=== PATIENT | male | born 1960 | race Caucasian/White ===

== ENCOUNTER 2016-06-29 08:47 | Emergency (ER) | payer BC ==
[~2016-06-29] VITALS: Ht 167.6 cm; Wt 93.9 kg
[~2016-06-29 08:47] MED LIST: ASPIR-LOW81 MG PO; Aspirin E.C. PO; FUROSEMIDE20 MG PO; K-DUR20 MEQ PO; LISINOPRIL5 MG PO; NITROSTAT0.4 MG SL; PANTOPRAZOLE SO40 MG PO; PRAVASTATIN SOD40 MG PO; PROTONIX40 MG PO; ZANTAC150 MG PO; ZOLOFT25 MG PO
[2016-06-29 09:21] LABS: BASOPHIL COUNT 0.1 K/uL (0-0.1); EOSINOPHIL (%) 3.7 % (0-5); EOSINOPHIL COUNT 0.2 K/uL (0-0.3); IMMATURE GRANULOCYTE (%) 0.9 % (0.0-0.7); IMMATURE GRANULOCYTE COUNT 0.1 K/uL; INSTRUMENT ABS NEUTROPHIL CT 3.5 K/uL; LYMPHOCYTE COUNT 1.6 K/uL (1.0-2.8); MCH 27.9 PG (29.0-34.0); MCHC 33.1 G/DL (30.0-36.0); MCV 84.3 FL (86-99); MEAN PLAT.VOLUME 8.5 uM^3 (9.0-12.4); MONOCYTE (%) 5.4 % (3-12); MONOCYTE COUNT 0.3 K/uL (0-0.8); NEUTROPHIL (%) 61.3 % (45-76); NEUTROPHIL COUNT 3.5 K/uL (1.8-6.4); PLATELET COUNT 187 K/uL (156-360); RBC DIS.WIDTH-CV 13.2 % (11.8-14.6); RBC DIS.WIDTH-SD 40.8 % (39-53); RED BLOOD COUNT 4.98 M/uL (4.00-5.50); WHITE BLOOD COUNT 5.7 K/uL (4.1-10.2)
[2016-06-29 09:29] LABS: CHLORIDE 106 mEq/L (99-109); POTASSIUM 4.5 mEq/L (3.7-5.4); SODIUM 140 mEq/L (136-147)
[2016-06-29 09:31] LABS: GLUCOSE 112 mg/dL (70-99)
[2016-06-29 09:32] LABS: ANION GAP 10 MEQ/L (2-14)
[2016-06-29 09:33] LABS: TOTAL BILIRUBIN 0.8 mg/dL (0.0-1.0)
[2016-06-29 09:34] LABS: ALKALINE PHOSPHATASE 54 IU/L (3-129)
[2016-06-29 09:35] LABS: GFR ESTIMATE (CALCULATED) > 59 mL/min/
[2016-06-29 09:36] LABS: UREA NITROGEN (BUN) 13 mg/dL (9-23)
[2016-06-29 09:58] LABS: ADD MIUA? NO; BILIRUBIN NEGATIVE; BLOOD NEGATIVE; COLOR YELLOW ((YELLOW)); GLUCOSE (STRIP) NEGATIVE; KETONES NEGATIVE; LEUKOCYTES NEGATIVE; NITRITE NEGATIVE; PROTEIN (STRIP) NEGATIVE; SPECIFIC GRAVITY 1.015 (1.000-1.030); UCUL ADDED? NO; UROBILINOGEN 0.2 MG/DL (0.2-1.0)
[2016-06-29] MEDS ORDERED: CIPRO500 MG PO (10:42)
[2016-06-29] MEDS ORDERED: BENTYL10 MG PO (10:42)
[2016-06-29] MEDS ORDERED: FLAGYL500 MG PO (10:42)
[2016-06-29 11:11] VITALS: BP 129/77
== END 2016-06-29 11:12 | disposition home or self-care (01) ==
LOC: EME 08:47
PROVIDERS: Physician Assistant
DX: K57.32 Diverticulitis of large intestine without perforation or abscess without bleeding (principal); Z87.891 Personal history of nicotine dependence; Z88.5 Allergy status to narcotic agent; J45.909 Unspecified asthma, uncomplicated; J44.9 Chronic obstructive pulmonary disease, unspecified; E78.5 Hyperlipidemia, unspecified; Z87.442 Personal history of urinary calculi; Z98.1 Arthrodesis status
CPT/HCPCS: 74020; 74177; 80053; 81003; 85025; 99281; 99284; J3010; J7120

== ENCOUNTER 2016-09-17 13:46 | Emergency (ER) | payer BC ==
[~2016-09-17] VITALS: Ht 172.7 cm; Wt 91.3 kg
[~2016-09-17 13:46] MED LIST changes: +BENTYL10 MG PO; +CIPRO500 MG PO; +FLAGYL500 MG PO
[2016-09-17 14:41] LABS: HEMATOCRIT 46.3 % (38.0-50.0); MCH 27.7 PG (29.0-34.0); MCHC 32.8 G/DL (30.0-36.0); MCV 84.3 FL (86-99); MEAN PLAT.VOLUME 8.2 uM^3 (9.0-12.4); PLATELET COUNT 167 K/uL (156-360); RBC DIS.WIDTH-CV 13.3 % (11.8-14.6); RBC DIS.WIDTH-SD 41.1 % (39-53); RED BLOOD COUNT 5.49 M/uL (4.00-5.50); WHITE BLOOD COUNT 10.1 K/uL (4.1-10.2)
[2016-09-17 14:50] LABS: CHLORIDE 108 mEq/L (99-109); POTASSIUM 4.3 mEq/L (3.7-5.4); SODIUM 139 mEq/L (136-147)
[2016-09-17 14:52] LABS: GLUCOSE 107 mg/dL (70-99)
[2016-09-17 14:53] LABS: ANION GAP 6 MEQ/L (2-14)
[2016-09-17 14:54] LABS: TOTAL BILIRUBIN 0.8 mg/dL (0.0-1.0)
[2016-09-17 14:55] LABS: ALKALINE PHOSPHATASE 57 IU/L (3-129)
[2016-09-17 14:56] LABS: GFR ESTIMATE (CALCULATED) > 59 mL/min/
[2016-09-17 14:57] LABS: UREA NITROGEN (BUN) 14 mg/dL (9-23)
[2016-09-17 15:07] LABS: ADD MIUA? NO; BILIRUBIN NEGATIVE; BLOOD NEGATIVE; COLOR YELLOW ((YELLOW)); GLUCOSE (STRIP) NEGATIVE; KETONES NEGATIVE; LEUKOCYTES NEGATIVE; NITRITE NEGATIVE; PROTEIN (STRIP) NEGATIVE; SPECIFIC GRAVITY 1.017 (1.000-1.030); UCUL ADDED? NO; UROBILINOGEN 0.2 MG/DL (0.2-1.0)
[2016-09-17] MEDS ORDERED: FLAGYL500 MG PO (16:58)
[2016-09-17] MEDS ORDERED: NORCO 5/3251 TABLET PO (16:58)
[2016-09-17] MEDS ORDERED: CIPRO500 MG PO (16:58)
[2016-09-17 17:24] VITALS: BP 122/72
== END 2016-09-17 17:25 | disposition home or self-care (01) ==
LOC: EME 13:46
DX: K57.92 Diverticulitis of intestine, part unspecified, without perforation or abscess without bleeding (principal); J45.909 Unspecified asthma, uncomplicated; J44.9 Chronic obstructive pulmonary disease, unspecified; E78.5 Hyperlipidemia, unspecified; Z87.442 Personal history of urinary calculi; Z87.891 Personal history of nicotine dependence
CPT/HCPCS: 80053; 81003; 85027; 99281; 99283; J2270